=== PATIENT | male | born 1965 | race Caucasian/White ===

== ENCOUNTER 2018-10-26 15:15 | Emergency (ER) | payer MEDICAID ==
[~2018-10-26] VITALS: Ht 172.7 cm; Wt 70.5 kg
[~2018-10-26 15:15] MED LIST: ALBU18HF2 IH; DIVA250T33 PO; GABA300C PO; HYDR-4353 PO; NAPR-1154 PO; VAL5T PO
[2018-10-26] MEDS ORDERED: SULF1TAB49 PO (16:06)
[2018-10-26] MEDS ORDERED: CEPH-572 PO (16:06)
--- NOTE | 2018-10-26 16:19 | NUR ---
FAXED PRESCRIPTIONS FROM [facility] FOR KEFLEX 500 MG PO Q 8H #21 AND BACTRIM DS 1 TAB PO Q 12 #14 TO [facility] FAX [phone] AND SPOKE TO OSMIN BAILEY FOR [facility] TO DELIVER TO [facility]
[2018-10-26 17:22] VITALS: BP 125/78
== END 2018-10-26 18:00 | disposition home or self-care (01) ==
LOC: ER 15:16
DX: S81.801A Unspecified open wound, right lower leg, initial encounter (principal); L02.512 Cutaneous abscess of left hand; M25.511 Pain in right shoulder; F41.9 Anxiety disorder, unspecified; F41.0 Panic disorder [episodic paroxysmal anxiety]; Z98.890 Other specified postprocedural states; Z59.0 Homelessness; Z56.0 Unemployment, unspecified; Z79.2 Long term (current) use of antibiotics; Z79.899 Other long term (current) drug therapy; X58.XXXA Exposure to other specified factors, initial encounter; Y93.9 Activity, unspecified; Y92.89 Other specified places as the place of occurrence of the external cause; Y99.8 Other external cause status
CPT/HCPCS: 10060; 99283

== ENCOUNTER 2020-08-12 09:43 | Emergency (ER) | payer MEDICAID ==
[~2020-08-12] VITALS: Ht 172.7 cm; Wt 58.0 kg
[~2020-08-12 09:43] MED LIST changes: +DIAZ5TAB22 PO; -VAL5T PO
[2020-08-12 09:54] VITALS: BP 128/90
[2020-08-12] MEDS ORDERED: SULF1TAB49 PO (10:22)
[2020-08-12] MEDS ORDERED: sulfamethoxazole/trimethoprim DS (800/160mg) tablet PO ONE (10:25)
== END 2020-08-12 10:56 | disposition home or self-care (01) ==
LOC: ER 09:44
DX: S60.512A Abrasion of left hand, initial encounter (principal); M25.532 Pain in left wrist; F41.9 Anxiety disorder, unspecified; G89.29 Other chronic pain; Z98.890 Other specified postprocedural states; Z86.19 Personal history of other infectious and parasitic diseases; Z72.89 Other problems related to lifestyle; Z56.0 Unemployment, unspecified; Z59.0 Homelessness; Z79.2 Long term (current) use of antibiotics; Z79.899 Other long term (current) drug therapy; W19.XXXA Unspecified fall, initial encounter; Y93.89 Activity, other specified; Y92.89 Other specified places as the place of occurrence of the external cause; Y99.8 Other external cause status
CPT/HCPCS: 29125; 73070; 73110; 99284